=== PATIENT | female | born 1990 | race Caucasian/White ===

== ENCOUNTER 2023-11-05 06:59 | Emergency (ER) | payer OTHER, SELFPAY ==
[2023-11-05 07:07] VITALS: BP 157/100
--- NOTE | 2023-11-05 07:40 | ED.GENMED ---
History of Present Illness
General
Chief Complaint: Eye Problems
Source: patient
Time Seen by Provider: 11/05/23 07:29
History of Present Illness
History of Present Illness:
33yoF with a history of hypertension and asthma presenting for evaluation of right eye redness and swelling. She initially was around a child with a red eye with drainage on 10/25/23. She developed left eye redness about 2 days later and was seen by
her PCP 1 week ago and started on polymyxin gtts x 6 days. She finished the drops 2 days ago but started to notice right eye redness, drainage, and pain yesterday. She states there was a large amount of pus that came out of her eye yesterday. She
woke up this morning with periorbital swelling and inability to open her right eye which has improved and she is now able to open the eye. She also endorses tearing and blurred vision. She had ear pain and swollen glands last week as well. She
reports a subjective fever last night. She wears glasses but does not use contact lenses.
Past History
Past History
ED Past Medical History: Asthma and Other (Sciatica)
ED Past Surgical History: and Gynecological
Social History
Tobacco: Non-smoker
Family History
Family History: Negative Early CAD
Phy Exam
Physical Exam
Physical Exam:
Right eye: Diffuse conjunctival injection with chemosis noted. +Moderate amount of periorbital swelling and erythema noted. No proptosis. PERRL. EOMs intact. No pain with eye movements. Visual anguiano normal. Visual acuity 20/25 R, 20/16 L with
glasses. Pressure 21-22mHg on R, 18-19mmHg on L. No uptake seen with fluorescein stain. Negative Ines sign.
General Physical Exam
General Presentation: well appearing and no apparent distress
General age: appears stated age
General Skin: warm and dry
General Habitus: normal
Eye Exam
Eye Exam: PERRL and EOMI
Course
Orders/Labs/Results
Orders:
Orders
11/05/23 07:40
Visual Acuity- Treatment ONCE
11/05/23 07:42
Purified Water Eye Wash [Dacriose Eye Wash Solution] 120 ml .ROUTE .STK-MED ONE
Tetracaine HCl [Tetracaine 0.5% Ophthalmic Solution] 1 drop .ROUTE .STK-MED ONE
Vital Signs
Initial and Last Documented VS:
Initial Vital Signs
Temp Pulse Resp BP Pulse Ox
98.3 F 84 18 157/100 99
11/05/23 07:07 11/05/23 07:07 11/05/23 07:07 11/05/23 07:07 11/05/23 07:07
Last Documented Vital Signs
Temp Pulse Resp BP Pulse Ox
98.3 F 84 18 157/100 99
11/05/23 07:07 11/05/23 07:07 11/05/23 07:07 11/05/23 07:07 11/05/23 07:07
MDM/Problems Addressed
Differential Diagnosis Includes:
33yoF here with R eye redness and pain x 1 day. Was previously on polymyxin gtts for L conjunctivitis last week. No fevers. She is afebrile and hemodynamically stable. She is well appearing in no distress. Diffuse conjunctival injection and chemosis
noted on exam. Periorbital edema noted. EOMs are intact and there is no proptosis. No clinical evidence of orbital cellulitis. Differential diagnosis includes but is not limited to: bacterial conjunctivitis, viral conjunctivitis, allergic
conjunctivitis, periorbital cellulitis
No indication for labs or imaging at this time. Will treat with Augmentin for periorbital cellulitis. Script for erythromycin ointment as provided. Advised close f/u with ophthalmology. Strict ED return precautions discussed with patient. She was
discharged in stable condition.
*Critical Care Note
Total Time (30-74mins, 75-104mins- exclusive of procedures): Not Applicable
ED Attending Note
-
Portions of this chart may have been created with voice recognition software.� Occasional wrong word or��sound alike� substitutions may have occurred due to the inherent limitations of voice recognition software.
Discharge Plan
Departure
Patient Disposition: Home (Routine Discharge)
Date of Disposition: 11/05/23
Time of Disposition: 08:29
Patient with high blood pressure during this ER visit?: Yes
Discharge Problem:
Periorbital cellulitis, Conjunctivitis
Instructions: Periorbital Cellulitis
Prescriptions:
New
amoxicillin-pot clavulanate 875-125 mg tablet
1 tab PO BID Qty: 14 0RF
erythromycin 5 mg/gram (0.5 %) ointment
0.5 inch BOTH EYES QID 7 Days Qty: 3.5 0RF
No Action
prednisone 10 mg tablet
10 mg PO DAILY Qty: 30 0RF
Rx Instructions:
5 tablets day 1, then 1 less tablet every other day until gone
ondansetron 4 mg tablet,disintegrating
4 mg PO Q8H PRN (Reason: nausea and vomiting) Qty: 7 0RF
famotidine 20 mg tablet
20 mg PO BID Qty: 14 0RF
Referrals:
Tiff Díaz PA-C [Family Provider] -
Daphne Marshall MD [Active] -
Activity Restrictions/Additional Instructions:
Use eye antibiotic ointment and take oral antibiotics as prescribed.
Please follow-up with ophthalmology in the next 48 hours. Return to the ER with any worsening symptoms, new vision changes, severe pain, fevers.
Interventions
Interventions:
*Risk Screen - Suicide Last Done: 11/05/23 07:32
*General Assessment Last Done: 11/05/23 07:32
*Neglect/Abuse Screening Last Done: 11/05/23 07:32
*ED COVID-19 Vaccine History Last Done: 11/05/23 07:08
*Nursing Disposition Last Done: 11/05/23 08:44
Discharge Date and Time
Discharge Date/Time: 11/05/23 08:44
Print Language: BELIZEAN
== END 2023-11-05 08:44 | disposition home or self-care (01) ==
LOC: EMR 06:59
PROVIDERS: EMERGENCY PHYSICIAN Emergency Medicine; FAMILY PHYSICIAN Physician Assistant
DX: L03.213 Periorbital cellulitis (principal); H10.9 Unspecified conjunctivitis; I10 Essential (primary) hypertension; J45.909 Unspecified asthma, uncomplicated
CPT/HCPCS: 99282

== ENCOUNTER → 2024-02-11 15:49 | Outpatient (REF) | payer OTHER, SELFPAY | LOC: HWRAD 15:49 | PROVIDERS: ATTENDING PHYSICIAN Nurse Practitioner Family; FAMILY PHYSICIAN Physician Assistant | DX: J01.00 Acute maxillary sinusitis, unspecified (principal) | CPT/HCPCS: 71046 ==

== ENCOUNTER → 2024-05-22 09:53 | Outpatient (REF) | payer OTHER, SELFPAY | LOC: HWRAD 09:53 | PROVIDERS: ATTENDING PHYSICIAN Nurse Practitioner Family; FAMILY PHYSICIAN Physician Assistant | DX: J01.40 Acute pansinusitis, unspecified (principal); R05.8 Other specified cough | CPT/HCPCS: 71046 ==